=== PATIENT | male | born 1950 | race Caucasian/White ===

== ENCOUNTER 2023-09-18 06:45 | Day surgery (SDC) | payer MEDICARE, BC ==
[2023-09-13 15:08] LABS: BASOPHILS % (AUTO) 0.3 % (0-1); EOSINOPHILS # (AUTO) 0.1 X10'3 (0-0.9); EOSINOPHILS % (AUTO) 0.7 % (0-6); LYMPHOCYTES % (AUTO) 13.9 % (21-51); MEAN CORPUSCULAR HEMOGLOBIN 32.3 PG (27.0-31.0); MEAN CORPUSCULAR HGB CONC 32.8 g/dL (33.0-36.5); MEAN CORPUSCULAR VOLUME 98.6 FL (78-98); MEAN PLATELET VOLUME 8.3 FL (7.4-10.4); MONOCYTES # (AUTO) 0.5 X10'3 (0-0.9); MONOCYTES % (AUTO) 6.3 % (2-12); NEUTROPHILS # (AUTO) 5.8 X10'3 (1.8-7.7); NEUTROPHILS % (AUTO) 78.8 % (42-75); PRE OP HEMATOCRIT 44.9 % (42.0-52.0); PRE OP HEMOGLOBIN 14.7 g/dL (14.0-17.9); PRE OP PLATELET COUNT 144 X10'3 (140-440); PRE OP WHITE BLOOD COUNT 7.3 10'3 (4.8-10.8); RED BLOOD COUNT 4.55 X10'6 (4.70-6.10); RED CELL DISTRIBUTION WIDTH 15.3 % (11.5-14.5)
[2023-09-13 15:25] LABS: ALBUMIN 3.8 G/DL (3.4-5.0); ALBUMIN/GLOBULIN RATIO 1.1 (1.1-1.5); ALKALINE PHOSPHATASE 59 IU/L (46-116); BLOOD UREA NITROGEN 31 MG/DL (7-18); BUN/CREATININE RATIO 21.7 (10.0-20.0); CALCIUM 8.8 MG/DL (8.5-10.1); CHLORIDE 103 MMOL/L (99-107); CREATININE 1.43 MG/DL (0.60-1.10); PRE OP ALT 24 U/L (30-65); PRE OP ANION GAP 10 (8-16); PRE OP AST 17 U/L (10-37); PRE OP BILIRUB, TOTAL 0.5 MG/DL (0.0-1.0); PRE OP GLUCOSE 124 MG/DL (70-104); PRE OP POTASSIUM 4.4 MMOL/L (3.4-5.1); PRE OP SODIUM 140 MMOL/L (135-145); TOTAL CARBON DIOXIDE 26.9 MMOL/L (24-32); TOTAL PROTEIN 7.3 G/DL (6.4-8.2); eGFR 49 ML/MIN
[~2023-09-18] VITALS: Ht 182.9 cm; Wt 103.6 kg
[2023-09-18] VITALS (8 sets, daily range): BP systolic 97–128; BP diastolic 48–68; PULSE 61–76; RESP 14–16; TEMP 97.2; O2SAT 95–100
[2023-09-18] MEDS: cefazolin 2gm/D5W 100mL 100 ML IV ONE (05:30)
[~2023-09-18 06:45] MED LIST: ATOR20TA66 PO; BACL10TA2 PO; CHOL200059 PO; DULO20CA18 PO; LISI2.5T14 PO; MAGN400T39 PO; PIOG45TA65 PO; PREG150C47 PO; PYRI50TA12 PO; SEMA2PEN SQ; SENN-263 PO
[2023-09-18] MEDS ORDERED: ringers solution, lacted 1,000 ML IV SCH (07:30)
[2023-09-18] MEDS ORDERED: ondansetron/PF 4mg/2ml inj IV PRN (07:30)
[2023-09-18] MEDS ORDERED: hydrALAZINE 20mg/ml inj. IV PRN (07:30)
[2023-09-18] MEDS ORDERED: labetalol 20mg/4ml (5mg/ml) syringe IV PRN (07:30)
[2023-09-18] MEDS ORDERED: morphine 4 MG/ML inj SYRINge IV PRN (07:30)
[2023-09-18] MEDS: famotidine 20mg tablet PO ONE (07:39)
[2023-09-18] MEDS: ringers solution, lacted 1,000 ML IV SCH (07:39)
[2023-09-18] MEDS ORDERED: fentaNYL/PF 50MCG/1 ML 2ML syringe ONE (08:48)
[2023-09-18] MEDS: morphine 2 MG/ML inj. syringe IV PRN (09:54)
[2023-09-18] MEDS ORDERED: LIDOcaine 2% (20mg/ml) 5ml vial ONE (10:25)
[2023-09-18] MEDS: BUPIVAcaine/PF 2.5mg/ml (0.25%) 10ml vial ONE (17:01)
[2023-09-18] MEDS: LIDOcaine 2% (20mg/ml) 5ml vial ONE (17:01)
== END 2023-09-18 10:20 | disposition home or self-care (01) ==
LOC: SSTAY O 06:45 → PAS 10:20
PROVIDERS: ATTEND Orthopaedic Surgery Hand Surgery
DX: G56.01 Carpal tunnel syndrome, right upper limb (principal); M65.311 Trigger thumb, right thumb; E11.9 Type 2 diabetes mellitus without complications; J44.9 Chronic obstructive pulmonary disease, unspecified; I20.9 Angina pectoris, unspecified; Z85.828 Personal history of other malignant neoplasm of skin; Z87.891 Personal history of nicotine dependence; Z79.899 Other long term (current) drug therapy; Z90.5 Acquired absence of kidney; Z98.890 Other specified postprocedural states
CPT/HCPCS: 26055; 36415; 64721; 80053; 82948; 85025; 93005; A4215; A6449; J0690; J2001; J2250; J2270; J3010; J3490; J7030; J7120; Z7506; Z7512